=== PATIENT | male | born 1990 | race Caucasian/White ===

== ENCOUNTER 2022-11-13 11:26 | Emergency (ER) | payer SELFPAY ==
[~2022-11-13] VITALS: Ht 175.3 cm; Wt 78.3 kg
[2022-11-13 11:30] VITALS: BP 146/76
[2022-11-13] MEDS ORDERED: HYDR-4924 PO (14:51)
[2022-11-13] MEDS ORDERED: RIV15T PO (14:52)
[2022-11-13] MEDS ORDERED: QUET50TA PO (14:52)
[2022-11-13] MEDS ORDERED: GABA300C10 PO (14:53)
[2022-11-13] MEDS ORDERED: PANT40TA2 PO (14:54)
== END 2022-11-13 12:58 | disposition left against medical advice (07) ==
LOC: ER 11:26
DX: R00.2 Palpitations (principal); R06.02 Shortness of breath; Z53.21 Procedure and treatment not carried out due to patient leaving prior to being seen by health care provider
CPT/HCPCS: 93005